=== PATIENT | male | born 1930 | race Caucasian/White ===

== ENCOUNTER 2019-11-08 09:24 | Emergency (ER) | payer MEDICARE ==
[~2019-11-08] VITALS: Ht 180.3 cm; Wt 75.0 kg
[~2019-11-08 09:24] MED LIST: ASPI81TA52 PO; OMEP-84 PO; SIMV80TA2 PO
[2019-11-08 10:21] LABS: BASOPHILS % (AUTO) 0.8 % (0-1); EOSINOPHILS % (AUTO) 0.7 % (0-6); HEMATOCRIT 43.2 % (42.0-52.0); HEMOGLOBIN 14.4 g/dl (14.0-17.9); LYMPHOCYTES % (AUTO) 37.4 % (21-51); MEAN CORPUSCULAR HEMOGLOBIN 33.1 PG (27.0-31.0); MEAN CORPUSCULAR HGB CONC 33.4 g/dL (33.0-36.5); MEAN CORPUSCULAR VOLUME 99.1 FL (78-98); MEAN PLATELET VOLUME 7.9 FL (7.4-10.4); MONOCYTES # (AUTO) 0.4 X10'3 (0-0.9); MONOCYTES % (AUTO) 7.5 % (2-12); NEUTROPHILS # (AUTO) 2.9 X10'3 (1.8-7.7); NEUTROPHILS % (AUTO) 53.6 % (42-75); PLATELET COUNT 189 X10'3 (140-440); RED BLOOD COUNT 4.36 X10'6 (4.70-6.10); RED CELL DISTRIBUTION WIDTH 13.7 % (11.5-14.5); WHITE BLOOD COUNT 5.4 X10'3 (4.5-11.0)
[2019-11-08 10:39] LABS: ALANINE AMINOTRANSFERASE 17 U/L (12-78); ALBUMIN 3.9 G/DL (3.4-5.0); ALBUMIN/GLOBULIN RATIO 1.3 (1.1-1.5); ALKALINE PHOSPHATASE 73 IU/L (46-116); ANION GAP 10 (8-16); ASPARTATE AMINO TRANSFERASE 15 U/L (10-37); BILIRUBIN,TOTAL 0.7 MG/DL (0.1-1.0); BLOOD UREA NITROGEN 15 MG/DL (7-18); BUN/CREATININE RATIO 13.4 (5.4-32.0); CALCIUM 9.1 MG/DL (8.5-10.1); CHLORIDE 106 MMOL/L (99-107); CREATININE 1.12 MG/DL (0.60-1.10); GLUCOSE 131 MG/DL (70-104); SODIUM 140 MMOL/L (135-145); TOTAL CARBON DIOXIDE 23.9 MMOL/L (24-32); TOTAL PROTEIN 6.9 G/DL (6.4-8.2); eGFR 62 ML/MIN
[2019-11-08 10:51] LABS: MAGNESIUM 1.8 MG/DL (1.5-2.4)
--- NOTE | 2019-11-08 12:15 | NUR ---
Interagated pacemaker and spoke with [employer] to let them know we needed a report
--- NOTE | 2019-11-08 12:26 | NUR ---
spoke with [employer] rep Charles [phone] hes will be faxing over a report but also reported that dulechamber pacemaker is working without well only thing is that battery life is getting low.
[2019-11-08 13:01] VITALS: BP 139/75
== END 2019-11-08 12:55 | disposition home or self-care (01) ==
LOC: ER 09:25
DX: R53.1 Weakness (principal); R42 Dizziness and giddiness; R20.2 Paresthesia of skin; K21.9 Gastro-esophageal reflux disease without esophagitis; Z95.0 Presence of cardiac pacemaker; Z79.82 Long term (current) use of aspirin; Z79.899 Other long term (current) drug therapy
CPT/HCPCS: 36415; 71045; 80053; 83735; 83880; 84439; 84443; 84484; 85025; 93005; 99285